=== PATIENT | female | born 1965 | race Caucasian/White ===

== ENCOUNTER → 2016-06-05 | Outpatient (CLI) | payer BC | LOC: CIMAGING 13:29 | PROVIDERS: ATTEND Internal Medicine Hematology & Oncology | DX: Z12.39 Encounter for other screening for malignant neoplasm of breast (principal); N64.4 Mastodynia; Z98.82 Breast implant status | CPT/HCPCS: 76641-PO ==

== ENCOUNTER → 2017-05-01 | Outpatient (CLI) | payer BC ==
[~2017-05-01] MED LIST: DEPO METHYLPREDNISOLONE 40 MG/ML SDV ONE
== END ==
LOC: FIMAGING 11:47
PROVIDERS: ATTEND Orthopaedic Surgery Sports Medicine
PROC: 3E0U3BZ Introduction of Anesthetic Agent into Joints, Percutaneous Approach (ICD-10-PCS; principal; 2017-05-01)
DX: M19.011 Primary osteoarthritis, right shoulder (principal); M19.012 Primary osteoarthritis, left shoulder; R91.1 Solitary pulmonary nodule; D71 Functional disorders of polymorphonuclear neutrophils
CPT/HCPCS: J1030

== ENCOUNTER → 2017-05-01 | Outpatient (CLI) | payer OTHER ==
[~2017-05-01] MED LIST changes: +BUPIVACAINE 0.25% 30 ML SDV ONE; -DEPO METHYLPREDNISOLONE 40 MG/ML SDV ONE; +LIDOCAINE 1% 300 MG/30 ML SDV ONE
== END ==
LOC: FIMAGING 11:50
PROVIDERS: ATTEND Internal Medicine
DX: Z13.6 Encounter for screening for cardiovascular disorders (principal); R06.02 Shortness of breath

== ENCOUNTER 2018-01-21 13:52 | Emergency (ER) | payer BC ==
[2018-01-21 14:48] LABS: PLATELET COUNT 181 10^3/uL (150-400)
--- NOTE | 2018-01-21 14:50 | EDPHY ---
H & P Time Seen by Provider: 01/21/18 14:31 HPI/ROS: CHIEF COMPLAINT: Abdominal pain and nausea HISTORY OF PRESENT ILLNESS: Patient is had a URI with cough and some congestion over the past week. She has a history of ovarian cysts and laparoscopy for endometriosis in the remote past. She presents today with abdominal pain which she noticed this morning when she woke up at 6:30 a.m.. Was right-sided associated with nausea and worse if she tried to eat food but she was able to drink oral fluids. Does not radiate, not associated with urinary symptoms or diarrhea or vomiting. Currently not menstruating. Symptoms mild to moderate at this time. She went to her regularly scheduled appointment at [facility] for diabetes and was referred here for concern for surgical abdominal process. REVIEW OF SYSTEMS: Eye: no change in vision ENT: HPI with congestion Cardiac: no chest pain. At 10:30 a.m. She had little bit worsening with her pain and felt diaphoretic and had an episode of brief syncope in the kitchen. She could tell she was going to pass out because she has done this multiple times before, and laid herself down on the floor without any injury. Pulmonary: no cough or SOB Abdomen: HPI Musculoskeletal: no back pain Skin: no rash Neuro: no headache Constitutional: no fever : no urinary symptoms A comprehensive 10 point review of systems is otherwise negative aside from elements mentioned in the history of present illness. PAST MEDICAL HISTORY: Includes insulin-dependent diabetes, breast cancer with bilateral mastectomy, ovarian cysts Social history: Nonsmoker General Appearance: Alert and conversant, cooperative. Eyes: No scleral icterus. ENT, Mouth: Slightly dry mucous membranes. Respiratory: Normal respiratory effort, breath sounds equal, lungs are clear to auscultation. Cardiovascular: Regular rate and rhythm. Gastrointestinal: Right lower quadrant tenderness without rebound or guarding. Neurological: Alert, face symmetric, normal motor and sensory in extremities. Skin: Warm and dry, no rashes. Musculoskeletal: No peripheral edema. Psychiatric: Not agitated. Emergency Department course/MDM: CT scanning discussed and consented to evaluate for appendicitis. She refused IV contrast for this. She had a colonoscopy 5 years ago that was negative for diverticuli. Zofran 4 mg IV, normal saline 1 L IV. Declined pain medication. 1607: CT abdomen pelvis negative per Errol, no appendicitis. 1620: Discussed with the patient, she wants to go home with oral antiemetics which I think is reasonable Constitutional: Initial Vital Signs Temperature (C) 36.6 C 01/21/18 13:53 Heart Rate 103 H 01/21/18 13:53 Respiratory Rate 18 01/21/18 13:53 Blood Pressure 190/96 H 01/21/18 13:53 O2 Sat (%) 99 01/21/18 13:53 O2 Delivery Mode Room Air Allergies/Adverse Reactions: silver [From Tegaderm AG Mesh] Allergy (Severe, Verified 08/17/14 13:32) BLISTERED SKIN prochlorperazine edisylate [From Compazine] Allergy (Verified 08/17/14 13:32) FELL DOWN,UNCONSCIOUS prochlorperazine maleate [From Compazine] Allergy (Verified 08/17/14 13:32) FELL DOWN,UNCONSCIOUS MOST MEDS Adverse Reaction (Uncoded 08/17/14 13:32) SENSITIVE TO MOST USUAL DOSES OF MEDICATIONS Home Medications: Medication Instructions Recorded Humalog 12/02/13 Lantus 100 UNITS/ML (RX) 12/02/13 Xanax 12/02/13 Controll Pills 08/17/14 Medical Decision Making - Diagnostics Imaging Results: Imaging Impressions Abdomen/Pelvis CT 01/21/18 15:00 IMPRESSION: 1. Limited exam without IV contrast, no abdominopelvic inflammatory mass or ascites. 2. Punctate nonobstructing left nephrolithiasis. No hydronephrosis. 3. Punctate cholelithiasis without evidence of acute cholecystitis. Harvinder Martinez was notified of these findings by telephone at 4:02 PM on 01/21/2018 Imaging: Discussed imaging studies w/ call center support consultant Radiologist Differential Diagnosis: Differential considered including but not limited to ovarian cyst, appendicitis , diverticulitis, renal colic UTI or pyelonephritis - Data Points Laboratory Results: Laboratory Results 01/21/18 14:29 01/21/18 14:29 01/21/18 01/21/18 01/21/18 14:29 14:29 14:29 WBC 6.00 10^3/uL 10^3/uL (3.80-9.50) RBC 4.61 10^6/uL 10^6/uL (4.18-5.33) Hgb 15.3 g/dL g/dL (12.6-16.3) Hct 42.6 % % (38.0-47.0) MCV 92.4 fL fL (81.5-99.8) MCH 33.2 pg pg (27.9-34.1) MCHC 35.9 g/dL g/dL (32.4-36.7) RDW 11.7 % % (11.5-15.2) Plt Count 181 10^3/uL 10^3/uL (150-400) MPV 9.7 fL fL (8.7-11.7) Neut % (Auto) 74.0 % % (39.3-74.2) Lymph % (Auto) 18.5 % % (15.0-45.0) [place] % (Auto) 6.0 % % (4.5-13.0) Eos % (Auto) 0.5 % L % (0.6-7.6) Baso % (Auto) 0.8 % % (0.3-1.7) Nucleat RBC Rel Count 0.0 % % (0.0-0.2) Absolute Neuts (auto) 4.44 10^3/uL 10^3/uL (1.70-6.50) Absolute Lymphs (auto) 1.11 10^3/uL 10^3/uL (1.00-3.00) Absolute Monos (auto) 0.36 10^3/uL 10^3/uL (0.30-0.80) Absolute Eos (auto) 0.03 10^3/uL 10^3/uL (0.03-0.40) Absolute Basos (auto) 0.05 10^3/uL 10^3/uL (0.02-0.10) Absolute Nucleated RBC 0.00 10^3/uL 10^3/uL (0-0.01) Immature Gran % 0.2 % % (0.0-1.1) Immature Gran # 0.01 10^3/uL 10^3/uL (0.00-0.10) Sodium 137 mEq/L mEq/L (135-145) Potassium 3.4 mEq/L mEq/L (3.3-5.0) Chloride 102 mEq/L mEq/L (97-110) Carbon Dioxide 27 mEq/l mEq/l (22-31) Anion Gap 8 mEq/L mEq/L (6-14) BUN 9 mg/dL mg/dL (7-23) Creatinine 0.5 mg/dL L mg/dL (0.6-1.0) Estimated GFR > 60 Glucose 186 mg/dL H mg/dL (70-100) Calcium 9.4 mg/dL mg/dL (8.5-10.4) Urine Color YELLOW Urine Appearance CLEAR Urine pH 7.0 (5.0-7.5) Ur Specific [place] 1.003 (1.002-1.030) Urine Protein NEGATIVE (NEGATIVE) Urine Ketones NEGATIVE (NEGATIVE) Urine Blood NEGATIVE (NEGATIVE) Urine Nitrate NEGATIVE (NEGATIVE) Urine Bilirubin NEGATIVE (NEGATIVE) Urine Urobilinogen NEGATIVE EU EU (0.2-1.0) Ur Leukocyte Esterase NEGATIVE (NEGATIVE) Urine RBC NONE SEEN /hpf /hpf (0-3) Urine WBC 0-1 /hpf /hpf (0-3) Ur Epithelial Cells NONE SEEN /lpf /lpf (NONE-1+) Urine Glucose 1+ H (NEGATIVE) Medications Given: Discontinued Medications Sodium Chloride (Ns) 1,000 mls @ 0 mls/hr IV EDNOW ONE; Wide Open PRN Reason: Protocol Stop: 01/21/18 14:54 Last Admin: 01/21/18 14:53 Dose: 1,000 mls Sodium Chloride (Ns) 1,000 mls @ 0 mls/hr IV EDNOW ONE; Wide Open PRN Reason: Protocol Stop: 01/21/18 15:34 Last Admin: 01/21/18 15:40 Dose: 1,000 mls Ondansetron HCl (Zofran) 4 mg IVP EDNOW ONE Stop: 01/21/18 14:52 Last Admin: 01/21/18 14:53 Dose: 4 mg Departure - Departure Disposition: Home, Routine, Self-Care Clinical Impression: Abdominal pain Qualifiers: Abdominal location: right lower quadrant Qualified Code(s): R10.31 - Right lower quadrant pain Condition: Good Instructions: Acute Abdominal Pain (ED) Additional Instructions: You need to return to the emergency department immediately if you develop worsening or severe pain, fever, vomiting or you are not completely better in 8- 12 hours. Referrals: Oriana Valdes [Primary Care Provider] - As per Instructions
[2018-01-21] MEDS ORDERED: ONDANSETRON 4 MG/2 ML VIAL IVP ONE (14:51)
[2018-01-21] MEDS ORDERED: ONDANSETRON 4 MG/2 ML VIAL ONE (14:51)
[2018-01-21] MEDS ORDERED: NS 1,000 ML IV ONE ×2 (14:53→15:33)
[2018-01-21] MEDS ORDERED: IOPAMIDOL (ISOVUE-300) 100 ML BTL ONE (15:05)
[2018-01-21 15:40] VITALS: BP 187/106
== END 2018-01-21 16:39 | disposition home or self-care (01) ==
DX: R10.31 Right lower quadrant pain (principal); E86.9 Volume depletion, unspecified
CPT/HCPCS: 96374; J2405; Q9967

== ENCOUNTER 2018-04-09 21:22 | Emergency (ER) | payer BC ==
--- NOTE | 2018-04-09 22:02 | EDPHY ---
H & P Stated Complaint: poss right breast infection Time Seen by Provider: 04/09/18 22:02 HPI/ROS: HPI CHIEF COMPLAINT: Concern about chest wall infection. HISTORY OF PRESENT ILLNESS: This is a very pleasant 53-year-old female, history of insulin-dependent diabetes, history of breast cancer status post bilateral mastectomy, presents emergency room concerning about infection of her chest wall. The patient on the 8th of this month had right clavicular surgery by Dr. Carlin, for subluxing clavicle. She has been recovering from this. However over last 24 hr she noticed some right breast swelling in the tissue above her breast swollen and warm and some mild redness. She denies any fever. She denies pleuritic pain chest pain or shortness of breath. She does have pain under clavicular site where her surgery as. She noticed that her right breast was a little bit more edematous than her left breast and warm and a little bit red. This concerned her so she decided come the emergency room for evaluation. Past Medical History: History of insulin-dependent diabetes, breast cancer Past Surgical History: Bilateral mastectomy. Breast implants. Recent right clavicular surgery on the . Social History: Denies drugs alcohol tobacco. Family History: Noncontributory ROS REVIEW OF SYSTEMS: 10 Systems were reviewed and negative with the exception of the elements mentioned in the history of present illness. Exam Constitutional appears well nontoxic no acute distress triage nursing summary reviewed, vital signs reviewed, awake/alert. Vital signs stable afebrile. Eyes normal conjunctivae and sclera, EOMI, PERRLA. HENT normal inspection, atraumatic, moist mucus membranes, no epistaxis, neck supple/ no meningismus, no raccoon eyes. Respiratory clear to auscultation bilaterally, normal breath sounds, no respiratory distress, no wheezing. Cardiovascular chest wall: Right clavicle incision intact with Steri-Strips with suture in place clean, no signs of drainage or discharge or pus. On the right anterior chest wall there is some mild edema it appears to be dependent edema with mild warmth. No crepitus. No significant erythema. No obvious signs of cellulitis. The right breast is more damage to the left breast. Warm to touch. No nipple drainage. No significant redness. rate normal, regular rhythm, no murmur, no edema, distal pulses normal. Gastrointestinal soft, non-tender, no rebound, no guarding, normal bowel sounds, no distension, no pulsatile mass. Genitourinary no CVA tenderness. Musculoskeletal no midline vertebral tenderness, full range of motion, no calf swelling, no tenderness of extremities, no meningismus, good pulses, neurovascularly intact. Skin pink, warm, & dry, no rash, skin atraumatic. Neurologic awake, alert and oriented x 3, AAOx3, moves all 4 extremities equally, motor intact, sensory intact, CN II-XII intact, normal cerebellar, normal vision, normal speech. Psychiatric normal mood/affect. Heme/Lymph/Immune no lymphadenopathy. Differential Diagnosis: Includes but is not limited to in a particular order postoperative edema, postoperative swelling, early infection, cellulitis chest wall infection, skin infection, abscess Medical Decision Making: Plan for this patient she appears very well here nontoxic and is afebrile. Her right chest wall shows minimal redness and warmth. The incision is clean, dry and intact. No signs of infection at the surgical site. Plan for basic blood work. Most likely start on antibiotics in case there is an early infection. I discussed this with the patient She is comfortable this plan. She will need to closely monitor herself for fever worsening redness worsening swelling. Re-evaluation: Patient's blood work reviewed no high white blood cell count. However given the patient is diabetic I had a long discussion with the patient about giving her antibiotics in case this is an early infection cellulitis. She would prefer that we discussed risk versus benefit of antibiotics. IV Ancef as been ordered here in emergency room. Keflex for home. Additionally discussed return precautions she understands return emergency room she develops worsening redness, pain, swelling, fever, concerning signs of symptoms for infection. She is comfortable this plan. Chemistry panel still pending. She is an insulin-dependent diabetic. Source: Patient - Personal History LMP (Females 10-55): Post Menopausal Current Tetanus/Diphtheria Vaccine: Yes Current Tetanus Diphtheria and Acellular Pertussis (TDAP): Yes - Medical/Surgical History Hx Asthma: Yes Hx Chronic Respiratory Disease: No Hx Diabetes: Yes Hx Cardiac Disease: No Hx Renal Disease: No Hx Cirrhosis: No Hx Alcoholism: No Hx HIV/AIDS: No Hx Splenectomy or Spleen Trauma: No Other PMH: JUVENILE DIABETES. BR CA BILAT MAST. 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 right clavicle surgery. asthma. SVT - Social History Smoking Status: Never smoked Constitutional: Initial Vital Signs Temperature (C) 36.9 C 04/09/18 21:24 Heart Rate 87 04/09/18 21:24 Respiratory Rate 16 04/09/18 21:24 Blood Pressure 156/78 H 04/09/18 21:24 O2 Sat (%) 97 04/09/18 21:24 O2 Delivery Mode Room Air Allergies/Adverse Reactions: acetaminophen [From Tylenol] Allergy (Verified 04/09/18 21:29) epinephrine Allergy (Verified 04/09/18 21:29) lorazepam [From Ativan] Allergy (Verified 04/09/18 21:28) midazolam [From Versed] Allergy (Verified 04/09/18 21:28) prochlorperazine edisylate [From Compazine] Allergy (Verified 08/17/14 13:32) FELL DOWN,UNCONSCIOUS prochlorperazine maleate [From Compazine] Allergy (Verified 08/17/14 13:32) FELL DOWN,UNCONSCIOUS SSRI Allergy (Uncoded 04/09/18 21:29) MOST MEDS Adverse Reaction (Uncoded 08/17/14 13:32) SENSITIVE TO MOST USUAL DOSES OF MEDICATIONS Home Medications: Medication Instructions Recorded Humalog 12/02/13 Lantus 100 UNITS/ML (RX) 12/02/13 Ondansetron Odt [Zofran Odt] 4 mg PO Q4PRN #6 tab 01/21/18 Cephalexin [Keflex] 500 mg PO Q6H #28 cap 04/09/18 Ibuprofen 04/09/18 Potassium Chloride 04/09/18 Progesterone 04/09/18 Valium 04/09/18 Medical Decision Making - Data Points Laboratory Results: Laboratory Results 04/09/18 22:39 04/09/18 04/09/18 22:39 22:39 WBC 6.30 10^3/uL 10^3/uL (3.80-9.50) RBC 4.18 10^6/uL 10^6/uL (4.18-5.33) Hgb 13.6 g/dL g/dL (12.6-16.3) Hct 38.1 % % (38.0-47.0) MCV 91.1 fL fL (81.5-99.8) MCH 32.5 pg pg (27.9-34.1) MCHC 35.7 g/dL g/dL (32.4-36.7) RDW 11.8 % % (11.5-15.2) Plt Count 190 10^3/uL 10^3/uL (150-400) MPV 9.6 fL fL (8.7-11.7) Neut % (Auto) 67.3 % % (39.3-74.2) Lymph % (Auto) 20.2 % % (15.0-45.0) [place] % (Auto) 7.5 % % (4.5-13.0) Eos % (Auto) 3.8 % % (0.6-7.6) Baso % (Auto) 1.0 % % (0.3-1.7) Nucleat RBC Rel Count 0.0 % % (0.0-0.2) Absolute Neuts (auto) 4.25 10^3/uL 10^3/uL (1.70-6.50) Absolute Lymphs (auto) 1.27 10^3/uL 10^3/uL (1.00-3.00) Absolute Monos (auto) 0.47 10^3/uL 10^3/uL (0.30-0.80) Absolute Eos (auto) 0.24 10^3/uL 10^3/uL (0.03-0.40) Absolute Basos (auto) 0.06 10^3/uL 10^3/uL (0.02-0.10) Absolute Nucleated RBC 0.00 10^3/uL 10^3/uL (0-0.01) Immature Gran % 0.2 % % (0.0-1.1) Immature Gran # 0.01 10^3/uL 10^3/uL (0.00-0.10) Sodium Pending Potassium Pending Chloride Pending Carbon Dioxide Pending Anion Gap Pending BUN Pending Creatinine Pending Estimated GFR Pending Glucose Pending Calcium Pending Departure - Departure Disposition: Home, Routine, Self-Care Clinical Impression: Cellulitis Condition: Good Instructions: Cellulitis (ED) Additional Instructions: 1. Antibiotics as prescribed. 2. Return emergency room if worsening redness, swelling, pain. 3. Recommend rest and ice. 4. Return if you're worse fever redness pain swelling. Referrals: Oriana Valdes [Primary Care Provider] - As per Instructions Prescriptions: Cephalexin [Keflex] 500 mg PO Q6H #28 cap
[2018-04-09 22:46] LABS: PLATELET COUNT 190 10^3/uL (150-400)
[2018-04-09] MEDS ORDERED: ceFAZolin 2 GM/DEXTROSE 100 ML IV ONE (23:16)
[2018-04-09 23:39] VITALS: BP 138/76
[2018-04-09] MEDS ORDERED: IBUPROFEN 600 MG TAB PO ONE (23:46)
== END 2018-04-10 00:35 | disposition home or self-care (01) ==
DX: L03.313 Cellulitis of chest wall (principal); E11.9 Type 2 diabetes mellitus without complications; Z85.3 Personal history of malignant neoplasm of breast; Z78.0 Asymptomatic menopausal state
CPT/HCPCS: 96374; J0690